=== PATIENT | male | born 2000 | race Caucasian/White ===

== ENCOUNTER 2019-09-30 21:32 | Emergency (ER) | payer OTHER ==
[~2019-09-30] VITALS: Ht 172.7 cm; Wt 69.4 kg
[2019-09-30] MEDS ORDERED: NABUMETONE500 MG PO (23:10)
== END 2019-09-30 23:08 | disposition home or self-care (01) ==
LOC: ER 21:32 → EDBD 22:13 → ER 22:13
DX: M75.81 Other shoulder lesions, right shoulder (principal)